=== PATIENT | female | born 1965 | race Caucasian/White ===

== ENCOUNTER → 2018-03-16 | Outpatient (CLI) | payer OTHER ==
[~2018-03-16] MED LIST: ACET325 PO; ARIP10 PO; BCP'S; CYCL10 PO; DESV50 PO; DULO60; FERR325 PO; HYDACE5 PO; LAMO100 PO; LAMO50 PO; LEVO750 PO; LISHYD1012; METO25ER; MOME.1TC TOP; NAPR500 PO; NEBI10 PO; OMEP10ER PO; OMEP20ER PO; ONDA4 PO; OXYACE5T PO; OXYC30ER PO; PANT40 PO; POLY17UD PO; PRED10 PO; PROACE100 PO; PROM25 PO; QUET100 PO; QUET200 PO; RANI150 PO; RXCYCL10 PO; SERT100; TRI-SPRINTEC PO; VENL150ER PO; VENL75; WARF7.5 PO
== END | disposition home or self-care (01) ==
LOC: LAB 12:00 → LAB SHORT 12:00
PROVIDERS: Nurse Practitioner
DX: Z01.419 Encounter for gynecological examination (general) (routine) without abnormal findings (principal)
CPT/HCPCS: G0145

== ENCOUNTER 2019-02-27 07:37 | Day surgery (SDC) | payer OTHER ==
[~2019-02-27] VITALS: Ht 172.7 cm; Wt 98.0 kg
== END 2019-02-27 10:00 | disposition home or self-care (01) ==
LOC: ORSCSDS 07:37
PROVIDERS: Internal Medicine Gastroenterology
PROC: 0DJD8ZZ Inspection of Lower Intestinal Tract, Via Natural or Artificial Opening Endoscopic (ICD-10-PCS; principal; 2019-02-27 09:00)
DX: Z12.11 Encounter for screening for malignant neoplasm of colon (principal)
CPT/HCPCS: J2405; J2704; J7120

== ENCOUNTER 2019-07-17 12:00 | Day surgery (SDC) | payer OTHER ==
[~2019-07-17] VITALS: Ht 172.7 cm; Wt 100.8 kg
[2019-07-17] MEDS ORDERED: DESV50 (12:33)
[2019-07-17] MEDS ORDERED: Prinivil10 MG (12:33)
[2019-07-17] MEDS ORDERED: ESZO3 (12:34)
== END 2019-07-17 15:05 | disposition home or self-care (01) ==
LOC: ORSCSDS 12:00
PROVIDERS: Internal Medicine Gastroenterology
PROC: 0DB58ZX Excision of Esophagus, Via Natural or Artificial Opening Endoscopic, Diagnostic (ICD-10-PCS; principal; 2019-07-17 13:45)
PROC: 0DB68ZX Excision of Stomach, Via Natural or Artificial Opening Endoscopic, Diagnostic (ICD-10-PCS; principal; 2019-07-17 13:45)
DX: K92.0 Hematemesis (principal); K29.70 Gastritis, unspecified, without bleeding; K31.7 Polyp of stomach and duodenum; K21.0 Gastro-esophageal reflux disease with esophagitis; Z98.84 Bariatric surgery status; I10 Essential (primary) hypertension; Z79.899 Other long term (current) drug therapy
CPT/HCPCS: 87081; 88305; 88312; 88341; 88342; J2704; J7120

== ENCOUNTER → 2021-04-10 | Outpatient (CLI) | payer OTHER ==
[~2021-04-10] MED LIST changes: +DESV50; +ESZO3; +PROAIR DIGIHAL90 MCG IH; +Prinivil10 MG
== END | disposition home or self-care (01) ==
LOC: LAB 14:22 → LAB SHORT 14:22
DX: J06.9 Acute upper respiratory infection, unspecified (principal); Z20.822 Contact with and (suspected) exposure to COVID-19
CPT/HCPCS: U0003

== ENCOUNTER 2022-11-29 10:41 | Emergency (ER) | payer OTHER ==
[~2022-11-29] VITALS: Ht 172.7 cm; Wt 117.0 kg
[2022-11-29 11:06] LABS: BASOPHILS ABSOLUTE AUTO 0.03 K/mm3 (0.00-0.23); BASOPHILS PERCENT AUTO 1 % (0-2); EOSINOPHILS PERCENT AUTO 4 % (0-6); Hemoglobin 11.5 g/dL (11.5-16.0); IMMATURE GRAN ABSOLUTE AUTO 0.01 K/mm3 (0.00-0.10); IMMATURE GRAN PERCENT AUTO 0 % (0-1); LYMPHOCYTES ABSOLUTE AUTO 2.09 K/mm3 (0.84-5.20); LYMPHOCYTES PERCENT AUTO 37 % (21-46); MONOCYTES ABSOLUTE AUTO 0.54 K/mm3 (0.16-1.47); MONOCYTES PERCENT AUTO 10 % (4-13); Mean Corpuscular HGB Conc 32.9 g/dL (31.5-36.5); Mean Corpuscular Volume 85 fL (80-100); Mean Platelet Volume 11.2 fL (9.1-12.4); NEUTROPHILS ABSOLUTE AUTO 2.81 K/mm3 (1.96-9.15); NEUTROPHILS PERCENT AUTO 50 % (41-73); Platelet Count 183 K/mm3 (150-400); RDW Coefficient Variation 14.1 % (11.7-14.2); RDW Standard Deviation 43.7 fL (35.1-46.3); White Blood Cell Count 5.68 K/mm3 (4.00-11.30)
[2022-11-29 11:22] LABS: Albumin, Blood 3.3 g/dL (3.4-5.0); Bilirubin, Total 0.4 mg/dL (0.1-1.0); Bun/Creatinine Ratio 18.7 (12.0-20.0); Calcium, Blood 8.8 mg/dL (8.5-10.1); Creatinine, Blood 0.7 mg/dL (0.40-1.00); Globulin, Blood 3.4 g/dL (2.2-4.0); Potassium, Blood 3.5 mmol/L (3.5-5.5); Total Protein, Blood 6.7 g/dL (6.4-8.2)
[2022-11-29] MEDS ORDERED: QUETIAPINE FUM300 M1 PO (11:39)
[2022-11-29] MEDS ORDERED: PANT20 PO (11:40)
[2022-11-29] MEDS ORDERED: DESVENLAFAXINE100 M3 PO (11:40)
[2022-11-29 14:00] VITALS: BP 110/80
== END 2022-11-29 14:24 | disposition home or self-care (01) ==
LOC: ER 10:41
PROVIDERS: Physician Assistant
DX: R07.89 Other chest pain (principal); Z79.899 Other long term (current) drug therapy; Z88.1 Allergy status to other antibiotic agents
CPT/HCPCS: 71046; 80053; 83690; 83880; 84484; 85025; A9270; J3475